=== PATIENT | female | born 1955 | race Caucasian/White ===

== ENCOUNTER 2020-09-29 10:08 | Day surgery (SDC) | payer MEDICARE ==
[2020-09-22 14:18] LABS: BASOPHILS # (AUTO) 0.1 X10'3 (0-0.2); BASOPHILS % (AUTO) 0.9 % (0-1); EOSINOPHILS # (AUTO) 0.2 X10'3 (0-0.9); EOSINOPHILS % (AUTO) 2.7 % (0-6); LYMPHOCYTES # (AUTO) 2.1 X10'3 (1.1-4.8); LYMPHOCYTES % (AUTO) 28.4 % (21-51); MEAN CORPUSCULAR HEMOGLOBIN 29.3 PG (27.0-31.0); MEAN CORPUSCULAR HGB CONC 33.7 g/dL (33.0-36.5); MEAN PLATELET VOLUME 8.8 FL (7.4-10.4); MONOCYTES # (AUTO) 0.5 X10'3 (0-0.9); MONOCYTES % (AUTO) 7.5 % (2-12); NEUTROPHILS # (AUTO) 4.4 X10'3 (1.8-7.7); NEUTROPHILS % (AUTO) 60.5 % (42-75); PRE OP HEMATOCRIT 49.9 % (35.0-45.0); PRE OP HEMOGLOBIN 16.8 g/dL (12.0-16.0); PRE OP PLATELET COUNT 181 X10'3 (140-440); RED BLOOD COUNT 5.74 X10'6 (4.20-5.60); RED CELL DISTRIBUTION WIDTH 14.5 % (11.5-14.5)
[2020-09-22 14:36] LABS: ALBUMIN 4.3 G/DL (3.4-5.0); ALBUMIN/GLOBULIN RATIO 1.3 (1.1-1.5); ALKALINE PHOSPHATASE 34 IU/L (46-116); BLOOD UREA NITROGEN 14 MG/DL (7-18); BUN/CREATININE RATIO 18.7 (6.6-38.0); CALCIUM 9.5 MG/DL (8.5-10.1); CHLORIDE 104 MMOL/L (99-107); CREATININE 0.75 MG/DL (0.40-0.90); PRE OP ALT 51 U/L (30-65); PRE OP ANION GAP 10 (8-16); PRE OP AST 35 U/L (10-37); PRE OP BILIRUB, TOTAL 0.3 MG/DL (0.0-1.0); PRE OP GLUCOSE 108 MG/DL (70-104); PRE OP POTASSIUM 3.7 MMOL/L (3.4-5.1); PRE OP SODIUM 141 MMOL/L (135-145); TOTAL CARBON DIOXIDE 27.3 MMOL/L (24-32); TOTAL PROTEIN 7.6 G/DL (6.4-8.2); eGFR 78 ML/MIN
[~2020-09-29] VITALS: Ht 154.9 cm; Wt 77.7 kg
[2020-09-29] VITALS (9 sets, daily range): BP systolic 104–133; BP diastolic 57–76
[~2020-09-29 10:08] MED LIST: ALEN70TA80 PO; ATOR20TA66 PO; BACL10TA7 PO; BIOTIN PO; BUPIVAcaine/PF 2.5 mg/ml (0.25%) 30ml vial ONE; COLLAGEN PO; DULO30CA52 PO; FENO134C PO; GABA-530 PO; HYDR-3972 PO; HYDR25TA4 PO; LIDOcaine 1% 30ml preserv. free vial ONE; LISI10TA27 PO; LORA10TA7 PO; OMEP20TA23 PO; OXYB5TAB16 PO; OXYC1TAB17 PO; clindamycin-Cleocin 900mg/D5W 50 ML IV ONE; famotidine 20mg tablet PO ONE; ringers solution, lacted 1,000 ML IV SCH
[2020-09-29] MEDS ORDERED: LIDOcaine 1% (10mg/ml) 2ml vial ONE (10:32)
[2020-09-29] MEDS ORDERED: propofol inj 20 ML IV ONE (12:50)
[2020-09-29] MEDS ORDERED: fentaNYL /PF 50mcg/ml 5ml ampule ONE (12:50)
[2020-09-29] MEDS ORDERED: midazolam 1 mg/ML 2ml injection ONE (12:50)
[2020-09-29] MEDS ORDERED: rocuronium 10mg/ml inj IV ONE (12:50)
[2020-09-29] MEDS ORDERED: BUPIVACAINE liposomal/PF 13.3 MG/ML vial IM ONE (13:24)
[2020-09-29] MEDS ORDERED: BUPIVAcaine/PF 2.5mg/ml (0.25%) 10ml vial ONE (13:24)
[2020-09-29] MEDS ORDERED: morphine 2 MG/ML inj. syringe IV PRN (13:35)
[2020-09-29] MEDS ORDERED: ringers solution, lacted 1,000 ML IV SCH (13:35)
[2020-09-29] MEDS ORDERED: meperidine/PF 25mg/ml syringe IV PRN ×3 (13:35)
[2020-09-29] MEDS ORDERED: proCHLORperazine 10 MG/2 ml inj IV PRN (13:35)
[2020-09-29] MEDS ORDERED: ondansetron/PF 4mg/2ml inj IV PRN (13:35)
[2020-09-29] MEDS ORDERED: morphine 4 MG/ML inj SYRINge IV PRN (13:35)
[2020-09-29] MEDS ORDERED: ondansetron/PF 4mg/2ml inj ONE (14:24)
[2020-09-29] MEDS ORDERED: dexamethasone sod phosphate 4mg/ml inj. ONE (14:24)
[2020-09-29] MEDS ORDERED: neostigmine methylsulfate 1 MG/ML 10ml vial ONE (14:27)
[2020-09-29] MEDS ORDERED: glycopyrrolate 0.2mg/ml inj ONE (14:27)
--- NOTE | 2020-09-29 14:45 | NUR ---
Received from OR via [facility] IN STABLE CONDITION , accompanied by Anesthesiologist DR. BARRERA and report given by Anesthesiolgi. Addendum: 09/29/20 at 1522 by Cinthia Hawkins RN Amended: Links added.
[2020-09-29] MEDS ORDERED: oxyCODONE/APAP 10/325mg tablet PO PRN (14:50)
[2020-09-29] MEDS ORDERED: oxyCODONE/APAP 5-325mg tablet PO PRN (14:50)
--- NOTE | 2020-09-29 16:05 | NUR ---
PATIENT DISCHARGED HOME AFTER WRITTEN AND VERAL INSTRUCTIONS GIVEB. PATIENT GAVE VERBAL UNDERSTANDING OF INSTRUCTIONS. PATIENT AMBULATED TO WHEELCHAIR FOR DISCHARGE. PATIENT LEFT FACILITY IN PRIVATE CAR WITHOUT INCIDENCE Addendum: 09/29/20 at 1616 by Cinthia Hawkins RN Amended: Links added.
== END 2020-09-29 16:05 | disposition home or self-care (01) ==
LOC: PAS 10:08
PROVIDERS: ATTEND Surgery
DX: K43.9 Ventral hernia without obstruction or gangrene (principal); I10 Essential (primary) hypertension; F17.210 Nicotine dependence, cigarettes, uncomplicated; M81.0 Age-related osteoporosis without current pathological fracture; K21.9 Gastro-esophageal reflux disease without esophagitis; E66.9 Obesity, unspecified; Z68.31 Body mass index [BMI] 31.0-31.9, adult; M85.80 Other specified disorders of bone density and structure, unspecified site; F32.9 Major depressive disorder, single episode, unspecified; G62.9 Polyneuropathy, unspecified; G89.29 Other chronic pain; Z98.51 Tubal ligation status; Z98.890 Other specified postprocedural states; Z96.651 Presence of right artificial knee joint; Z20.822 Contact with and (suspected) exposure to COVID-19; Z79.899 Other long term (current) drug therapy; Z88.8 Allergy status to other drugs, medicaments and biological substances; Z98.84 Bariatric surgery status; Z88.1 Allergy status to other antibiotic agents; Z82.49 Family history of ischemic heart disease and other diseases of the circulatory system; Z83.3 Family history of diabetes mellitus; Z82.61 Family history of arthritis; Z84.1 Family history of disorders of kidney and ureter
CPT/HCPCS: 36415; 49652; 80053; 82948; 85025; 93005; C1758; C1781; C9290; J1100; J2001; J2175; J2250; J2405; J2704; J2710; J3010; J3490; U0003; A4215; A4618; J7120